=== PATIENT | female | born 1955 | race Hispanic/Latino ===

== ENCOUNTER 2016-12-18 09:46 | Outpatient (CLI) | payer OTHER ==
--- NOTE | 2016-12-18 11:44 | XRay Report ---
Bilateral knees, 2 views History: Injury, pain. Findings: Bone mineralization is borderline. No acute osseous findings or joint pathology is identified. The soft tissues are unremarkable. Minor vascular calcifications are noted in the posterior soft tissues bilaterally. Impression: Unremarkable bilateral knees. Borderline osteopenia.
== END 2016-12-18 09:47 | disposition home or self-care (01) ==
LOC: XRAY 09:46
PROVIDERS: ATTEND Internal Medicine
DX: S89.91XA Unspecified injury of right lower leg, initial encounter (principal); S89.92XA Unspecified injury of left lower leg, initial encounter; M25.862 Other specified joint disorders, left knee; M25.861 Other specified joint disorders, right knee; I11.0 Hypertensive heart disease with heart failure; I50.9 Heart failure, unspecified; E78.00 Pure hypercholesterolemia, unspecified; E11.9 Type 2 diabetes mellitus without complications; G62.9 Polyneuropathy, unspecified; F32.9 Major depressive disorder, single episode, unspecified; F41.9 Anxiety disorder, unspecified; Z95.5 Presence of coronary angioplasty implant and graft; X58.XXXA Exposure to other specified factors, initial encounter; Y93.89 Activity, other specified; Y92.89 Other specified places as the place of occurrence of the external cause; Y99.8 Other external cause status

== ENCOUNTER 2020-11-17 08:51 | Observation (INO) | payer MEDICARE, OTHER ==
[2020-11-17] MEDS ORDERED: ASPIRIN EC 325 MG TAB PO ONE (09:18)
[2020-11-17 09:47] LABS: Basophils % (Auto) 0.5 % (0.0-1.8); Eosinophils # (Auto) 0.1 K/mm3 (0.0-0.4); Hematocrit 35.4 % (30.3-42.9); Hemoglobin 11.8 gm/dl (10.1-14.3); Lymphocytes # (Auto) 1.5 K/mm3 (1.2-5.4); Lymphocytes % (Auto) 26.2 % (13.4-35.0); Mean Corpuscular HGB Conc 33 % (30-34); Mean Corpuscular Volume 91 fl (79-97); Monocytes # (Auto) 0.6 K/mm3 (0.0-0.8); Monocytes % (Auto) 11.3 % (0.0-7.3); Platelet Count 152 K/mm3 (140-440); Red Cell Distribution Width 13.6 % (13.2-15.2)
[2020-11-17] MEDS ORDERED: SODIUM CHLORIDE 0.9% 500 ML 500 ML IV SCH (10:00)
[2020-11-17 10:03] LABS: BUN/Creatinine Ratio 24; Blood Urea Nitrogen 22 mg/dL (7-17); Calcium 9.3 mg/dL (8.4-10.2); Hemolysis Index 3
[2020-11-17] MEDS ORDERED: HEPARIN/NS 5000 UNIT/500ML 1,000 ML IR ONE (10:50)
[2020-11-17 11:01] LABS: INR 0.9 (0.87-1.13)
[2020-11-17] MEDS: fentaNYL 100 MCG/2 ML INJ ONE ×3 (11:14→11:49)
[2020-11-17] MEDS: MIDAZOLAM 2 MG/2 ML INJ ONE ×3 (11:15→11:49)
[2020-11-17] MEDS: LIDOCAINE (2%) 20 MG/1 ML VIAL 20 ML MDV INFILTRATI ONE ×2 (11:16→11:35)
[2020-11-17] MEDS: HEPARIN 10,000 UNITS/10 ML VIAL ONE ×5 (11:16→12:13)
[2020-11-17] MEDS: VERAPAMIL 5 MG/2 ML INJ ONE ×2 (11:17→11:36)
[2020-11-17] MEDS: NITROGLYCERIN SYRINGE 6 ML ONE ×2 (11:17→11:36)
[2020-11-17] MEDS ORDERED: ALUM-MAG HYDROXIDE-SIMETHICONE 200-200-20MG/5ML ORAL LIQD 30 ML ONE (12:10)
[2020-11-17] MEDS ORDERED: CLOPIDOGREL 300 MG TAB ONE (12:10)
[2020-11-17] MEDS ORDERED: ZOLPIDEM 5 MG TAB PO PRN (12:29)
[2020-11-17] MEDS ORDERED: traMADol 50 MG TAB PO PRN ×2 (12:29→12:55)
[2020-11-17] MEDS ORDERED: ONDANSETRON 4 MG/2 ML INJ IV PRN (12:29)
[2020-11-17] MEDS ORDERED: SODIUM CHLORIDE 0.9% 1000 ML 1,000 ML IV SCH (12:30)
[2020-11-17] MEDS ORDERED: ACETAMINOPHEN 325 MG TAB PO PRN ×2 (12:55→13:00)
[2020-11-17] MEDS ORDERED: HYDROcodone/ACETAMINOPHEN 5-325 MG TAB PO PRN (12:55)
--- NOTE | 2020-11-17 14:32 | Cardiac Catherization Report ---
DATE OF SERVICE: 11/17/2020 CARDIAC CATHETERIZATION AND CORONARY ANGIOPLASTY REPORT REASON FOR PROCEDURE: Chest pain, unstable angina and abnormal thallium stress test in a patient with previous coronary stent in the proximal LAD. PROCEDURES: 1. Left heart catheterization. 2. Selective left and right coronary angiography. 3. Left ventricular angiography. 4. Coronary angioplasty and stenting of the proximal LAD. DESCRIPTION OF PROCEDURE: The patient was prepped and draped in a sterile fashion after informed consent. The right radial cath site was prepped and draped after negative Michael's test. The right radial artery was entered using the Seldinger technique followed by placement of a 6-Swazi hydrophilic sheath. Routine radial cocktail was administered via the sheath. We performed selective left and right coronary angiography using a #3.5 left Corinna and a #4 right Corinna. The right Corinna was used for left ventricular angiography. The angiograms were reviewed. CORONARY ANGIOGRAPHY: Left ventricular end diastolic pressure was 15, ascending aortic pressure 152/66. There was no significant pressure gradient on pullback across the aortic valve. Coronary angiography showed the left main coronary artery to be free of significant disease. The left anterior descending artery contained a stent in its proximal to mid segment. The distal half of the stented segment was severely restenosed with a greater than 99% occlusion within the restenosed segment. This resulted in MYA grade 1 to 2 flow down a large LAD system. The circumflex artery was the large dominant system that contained mild irregularities with no significant disease. The right coronary artery was small, nondominant and free of significant disease. CORONARY ANGIOPLASTY: We commenced with ad-hoc coronary intervention to the LAD restenosis. We selected a #3.0 XB guiding catheter and advanced to the left coronary ostium. A 0.014 inch Barking Machine Feeder 50 guidewire was directed across the lesional segment in the LAD. Following wire placement, we performed predilatation balloon angioplasty using a 3.0 mm balloon catheter. We then deployed a 3.0 x 22 mm Resolute drug-eluting stent across the lesional segment, covering the previous stented segment and inflated the new stent to optimal pressures. Following stenting, there was an excellent angiographic result, zero residual stenosis and MYA 3 flow was restored down the LAD. The patient tolerated the procedure well and there were no complications. The catheters and the wires were removed, sheath removed and hemostasis using a TR band. She was returned to the postprocedure unit in stable condition. CONCLUSION: 1. Coronary artery disease with critical in-stent restenosis of the proximal LAD stent. 2. Otherwise, no significant de lanie disease in a circumflex dominant system. 3. Overall, mild left ventricular systolic dysfunction, ejection fraction 45-50% with evidence on LV angiography of hypo to akinesis of the distal anterior wall and apex. 4. Successful ad-hoc angioplasty and stenting of the LAD following balloon angioplasty and deployment of a 3.0 mm drug-eluting stent, excellent angiographic result with zero residual stenosis and buddhist of MYA 3 flow. The patient will be admitted for 23 hours post-intervention observation and placed on guideline directed medical therapy including dual oral antiplatelet therapy with Plavix and aspirin. TID: [id number] RECEIPT: [id number] PONCE cc: Smith Altamirano
[2020-11-17] MEDS: METOPROLOL TARTRATE 50 MG TAB PO SCH ×2 (14:34→21:56)
[2020-11-17] MEDS: INSULIN REGULAR, HUMAN 100 UNITS/1 ML SUB-Q SCH ×2 (15:37→21:56)
[2020-11-17] MEDS: clonazePAM 0.5 MG TAB PO SCH (21:51)
[2020-11-17] MEDS ORDERED: traZODone 100 MG TAB PO SCH (22:00)
[2020-11-17] MEDS ORDERED: NON-FORMULARY EACH (Trazodone Hcl [Trazodone Hcl] 150 MG Tablet) PO SCH (22:00)
[2020-11-17] MEDS ORDERED: DIVALPROEX ER 500 MG TAB PO SCH (22:00)
[2020-11-17] MEDS ORDERED: CLONAZEPAM 1 MG PO SCH (22:00)
[2020-11-18 05:38] LABS: Basophils % (Auto) 0.5 % (0.0-1.8); Eosinophils # (Auto) 0.1 K/mm3 (0.0-0.4); Eosinophils % (Auto) 1.5 % (0.0-4.3); Hematocrit 33.5 % (30.3-42.9); Hemoglobin 11.4 gm/dl (10.1-14.3); Lymphocytes # (Auto) 1.8 K/mm3 (1.2-5.4); Lymphocytes % (Auto) 27.5 % (13.4-35.0); Mean Corpuscular HGB Conc 34 % (30-34); Mean Corpuscular Volume 91 fl (79-97); Monocytes # (Auto) 0.7 K/mm3 (0.0-0.8); Monocytes % (Auto) 11.4 % (0.0-7.3); Platelet Count 146 K/mm3 (140-440); Red Blood Count 3.68 M/mm3 (3.65-5.03); Red Cell Distribution Width 13.4 % (13.2-15.2)
[2020-11-18 05:43] LABS: Blood Urea Nitrogen 19 mg/dL (7-17); Calcium 8.6 mg/dL (8.4-10.2); Hemolysis Index 1
[2020-11-18 05:45] LABS: BUN/Creatinine Ratio 27
[2020-11-18 08:33] VITALS: BP 139/54
--- NOTE | 2020-11-18 09:02 | XRay Report ---
CHEST 1 VIEW 11/18/2020 8:47 AM INDICATION / CLINICAL INFORMATION: Post-PCI. COMPARISON: 02/08/18. FINDINGS: SUPPORT DEVICES: None. HEART / MEDIASTINUM: The heart size and pulmonary vasculature are normal. LUNGS / PLEURA: There is a 1 cm nodular opacity overlying the right lateral costophrenic angle, new s maximo the prior study. A tiny calcified granuloma in the left mid-upper lung laterally is stable. The lungs are otherwise clear. There is no evidence of pleural effusion. No pneumothorax. ADDITIONAL FINDINGS: No significant additional findings. IMPRESSION: Nodular opacity overlying the right lateral costophrenic angle. PA and lateral views with nipple markers are recommended for further characterization. Signer Name: Boone Flaherty MD Signed: 11/18/2020 8:57 AM Workstation Name: [id number]
[2020-11-18] MEDS ORDERED: CLOPIDOGREL 75 MG TAB PO SCH (10:00)
[2020-11-18] MEDS ORDERED: LISINOPRIL 10 MG TAB PO SCH (10:00)
[2020-11-18] MEDS ORDERED: ASPIRIN EC 325 MG TAB PO SCH (10:00)
[2020-11-18] MEDS ORDERED: ASPIRIN EC 81 MG TAB PO SCH (10:00)
[2020-11-18] MEDS: clonazePAM 0.5 MG TAB PO SCH (10:33)
[2020-11-18] MEDS: METOPROLOL TARTRATE 50 MG TAB PO SCH (10:34)
[2020-11-18] MEDS: INSULIN REGULAR, HUMAN 100 UNITS/1 ML SUB-Q SCH ×2 (10:38→13:34)
--- NOTE | 2020-11-18 11:23 | Short Stay Summary ---
<MONIQUE SALEH - Last Filed: 11/18/20 11:26> Short Stay Documentation Date of service: 11/18/20 - History H&P: obtained from office - Allergies and Medications Current Medications: Allergies tetracycline Adverse Reaction (Verified 11/17/20 09:13) Unknown Home Medications Medication Instructions Recorded Confirmed Last Taken Type Lisinopril [Zestril] 10 mg PO DAILY 02/08/18 11/17/20 11/16/20 History 10 mg clonazePAM [Clonazepam] 1 mg PO BID 02/08/18 11/17/20 11/16/20 History 1 mg AtorvaSTATin [Lipitor] 40 mg PO 11/17/20 11/17/20 11/16/20 History 40 mg Divalproex ER [Depakote ER] 500 mg PO 11/17/20 11/17/20 11/16/20 History 500 mg Insulin Glargine,Hum.rec.anlog 22 units SQ QAM 11/17/20 11/17/20 11/16/20 History [Lantus Solostar] 22 units Insulin NPH/Regular [NovoLIN 70/30] 8 unit SUB-Q TID 11/17/20 11/17/20 11/16/20 History 8 units Trazodone HCl 150 mg PO 11/17/20 11/17/20 11/16/20 History 150 mg Active Medications Acetaminophen (Acetaminophen 325 Mg Tab) 650 mg PO Q4H PRN PRN Reason: Pain MILD(1-3)/Fever >100.5/[place] Aspirin (Aspirin Ec 81 Mg Tab) 81 mg PO QDAY [facility] Last Admin: 11/18/20 10:33 Dose: 81 mg Documented by: Atorvastatin Calcium (Atorvastatin 40 Mg Tab) 40 mg PO [facility] Last Admin: 11/17/20 21:56 Dose: 40 mg Documented by: Clonazepam (Clonazepam 0.5 Mg Tab) 1 mg PO BID [facility] Last Admin: 11/18/20 10:33 Dose: 1 mg Documented by: Clopidogrel Bisulfate (Clopidogrel 75 Mg Tab) 75 mg PO QDAY [facility] Last Admin: 11/18/20 10:34 Dose: 75 mg Documented by: Divalproex Sodium (Divalproex Er 500 Mg Tab) 500 mg PO [facility] Last Admin: 11/17/20 22:25 Dose: 500 mg Documented by: Insulin Human Regular (Insulin Regular, Human 100 Units/1 Ml) 0 units SUB-Q ACHS [facility]; Protocol Last Admin: 11/18/20 10:38 Dose: 4 units Documented by: Isosorbide Mononitrate (Isosorbide Mononitrate Er 30 Mg Tab) 30 mg PO QDAY [facility] Last Admin: 11/18/20 10:33 Dose: 30 mg Documented by: Lisinopril (Lisinopril 10 Mg Tab) 10 mg PO DAILY [facility] Last Admin: 11/18/20 10:34 Dose: 10 mg Documented by: Metoprolol Tartrate (Metoprolol Tartrate 50 Mg Tab) 50 mg PO BID [facility] Last Admin: 11/18/20 10:34 Dose: 50 mg Documented by: Ondansetron HCl (Ondansetron 4 Mg/2 Ml Inj) 4 mg IV Q8H PRN PRN Reason: N/V unrelieved by Reglan Tramadol HCl (Tramadol 50 Mg Tab) 50 mg PO Q4H PRN PRN Reason: Pain, Mild (1-3) Trazodone HCl (Trazodone 100 Mg Tab) 150 mg PO HS [facility] Last Admin: 11/17/20 21:51 Dose: 150 mg Documented by: Zolpidem Tartrate (Zolpidem 5 Mg Tab) 5 mg PO QHS PRN PRN Reason: Sleep - Physical exam General appearance: no acute distress HEENT: PERRLA Lungs: Clear to auscultation Heart: Regular rate, Normal S1, Normal S2 - Brief post op/procedure progress note Condition: stable - Hospital course Hospital course: Labs today shows a potassium at 5.1. - Disposition Condition at discharge: Stable Disposition: 01 HOME / SELF CARE / HOMELESS Short Stay Discharge Plan Follow up with: Smith SAEZ MD [Primary Care Provider] - 7 Days AUGUSTO LENTZ MD [Staff Physician] - 7 Days Prescriptions: Aspirin EC [Halfprin EC] 81 mg PO QDAY #30 tablet ISOSORBIDE MONOnitrate [Imdur ER] 30 mg PO QDAY #30 tablet Metoprolol [Lopressor TAB] 50 mg PO BID #60 tablet Clopidogrel [Plavix] 75 mg PO QDAY #30 tablet <AUGUSTO LENTZ - Last Filed: 11/18/20 12:59> Short Stay Documentation - History H&P: obtained from office Past Medical History: CAD - Allergies and Medications Current Medications: Allergies tetracycline Adverse Reaction (Verified 11/17/20 09:13) Unknown Home Medications Medication Instructions Recorded Confirmed Last Taken Type Lisinopril [Zestril] 10 mg PO DAILY 02/08/18 11/17/20 11/16/20 History 10 mg clonazePAM [Clonazepam] 1 mg PO BID 02/08/18 11/17/20 11/16/20 History 1 mg AtorvaSTATin [Lipitor] 40 mg PO HS 11/17/20 11/17/20 11/16/20 History 40 mg Divalproex ER [Depakote ER] 500 mg PO HS 11/17/20 11/17/20 11/16/20 History 500 mg Insulin Glargine,Hum.rec.anlog 22 units SQ QAM 11/17/20 11/17/20 11/16/20 History [Lantus Solostar] 22 units Insulin NPH/Regular [NovoLIN 70/30] 8 unit SUB-Q TID 11/17/20 11/17/20 11/16/20 History 8 units Trazodone HCl 150 mg PO HS 11/17/20 11/17/20 11/16/20 History 150 mg Aspirin EC [Halfprin EC] 81 mg PO QDAY #30 tablet 11/18/20 Unknown Rx Clopidogrel [Plavix] 75 mg PO QDAY #30 tablet 11/18/20 Unknown Rx ISOSORBIDE MONOnitrate [Imdur ER] 30 mg PO QDAY #30 tablet 11/18/20 Unknown Rx Metoprolol [Lopressor TAB] 50 mg PO BID #60 tablet 11/18/20 Unknown Rx Active Medications Acetaminophen (Acetaminophen 325 Mg Tab) 650 mg PO Q4H PRN PRN Reason: Pain MILD(1-3)/Fever >100.5/[place] Aspirin (Aspirin Ec 81 Mg Tab) 81 mg PO QDAY [facility] Last Admin: 11/18/20 10:33 Dose: 81 mg Documented by: Atorvastatin Calcium (Atorvastatin 40 Mg Tab) 40 mg PO [facility] Last Admin: 11/17/20 21:56 Dose: 40 mg Documented by: Clonazepam (Clonazepam 0.5 Mg Tab) 1 mg PO BID [facility] Last Admin: 11/18/20 10:33 Dose: 1 mg Documented by: Clopidogrel Bisulfate (Clopidogrel 75 Mg Tab) 75 mg PO QDAY [facility] Last Admin: 11/18/20 10:34 Dose: 75 mg Documented by: Divalproex Sodium (Divalproex Er 500 Mg Tab) 500 mg PO [facility] Last Admin: 11/17/20 22:25 Dose: 500 mg Documented by: Insulin Human Regular (Insulin Regular, Human 100 Units/1 Ml) 0 units SUB-Q ACHS [facility]; Protocol Last Admin: 11/18/20 10:38 Dose: 4 units Documented by: Isosorbide Mononitrate (Isosorbide Mononitrate Er 30 Mg Tab) 30 mg PO QDAY [facility] Last Admin: 11/18/20 10:33 Dose: 30 mg Documented by: Lisinopril (Lisinopril 10 Mg Tab) 10 mg PO DAILY [facility] Last Admin: 11/18/20 10:34 Dose: 10 mg Documented by: Metoprolol Tartrate (Metoprolol Tartrate 50 Mg Tab) 50 mg PO BID [facility] Last Admin: 11/18/20 10:34 Dose: 50 mg Documented by: Ondansetron HCl (Ondansetron 4 Mg/2 Ml Inj) 4 mg IV Q8H PRN PRN Reason: N/V unrelieved by Reglan Tramadol HCl (Tramadol 50 Mg Tab) 50 mg PO Q4H PRN PRN Reason: Pain, Mild (1-3) Trazodone HCl (Trazodone 100 Mg Tab) 150 mg PO [facility] Last Admin: 11/17/20 21:51 Dose: 150 mg Documented by: Zolpidem Tartrate (Zolpidem 5 Mg Tab) 5 mg PO QHS PRN PRN Reason: Sleep - Physical exam General appearance: no acute distress HEENT: PERRLA Lungs: Clear to auscultation Heart: Regular rate, Normal S1, Normal S2 Gastrointestinal: normoactive bowel sounds Female Genitourinary: deferred Rectal Exam: deferred Extremities: pulses intact Neurological: Normal gait, Normal speech - Brief post op/procedure progress note Date of procedure: 11/17/20 Pre-op diagnosis: Coronary artery disease Post-op diagnosis: same Anesthesia: MAC Findings: See cath report. Condition: stable - Hospital course Hospital course: Patient presented for an outpatient cardiac catheterization, indication was chest pain and abnormal thallium. On cardiac catheterization, we found a greater than 99% in-stent restenosis of a proximal LAD stent which was implanted over 10 years ago. She underwent successful angioplasty and additional implantation of a long 3.0 mm drug-eluting stent, covering the entire lesional segment of restenosis. Following stenting there was an excellent angiographic result and MYA-3 flow was restored. On discharge, the patient is asymptomatic, looks and feels well, hemodynamically stable in sinus rhythm. There is some ecchymosis around the right radial cath site, but no hematoma, normal radial pulses and the hand is warm with normal motor function. The laboratory exam shows a borderline potassium of 5.1, which has been recommended for a repeat pending which the patient will be discharged home. On discharge she will be continued on guideline directed medical therapy for coronary artery disease including dual oral antiplatelet therapy with Plavix. - Discharge Diagnoses (1) Coronary artery disease Status: Acute (2) Coronary angioplasty status Status: Acute Short Stay Discharge Plan Activity: advance as tolerated Weight Bearing Status: Full Weight Bearing Diet: low fat, low cholesterol, low salt, diabetic Wound: keep clean and dry Special Instructions: smoking cessation, no heavy lifting (3 days)
--- NOTE | 2020-11-18 13:30 | Electrocardiograph Report ---
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
--- NOTE | 2020-11-18 13:32 | Electrocardiograph Report ---
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
--- NOTE | 2020-11-18 13:37 | Electrocardiograph Report ---
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
== END 2020-11-18 16:09 | disposition home or self-care (01) ==
LOC: CATHLABREC 08:51 → 4A 12:55 → INTOOBSV 12:55 → 4A 14:42
PROVIDERS: ADMIT Internal Medicine Cardiovascular Disease; ATTEND Internal Medicine Cardiovascular Disease
DX: I25.119 Atherosclerotic heart disease of native coronary artery with unspecified angina pectoris (principal); E11.9 Type 2 diabetes mellitus without complications; Z79.4 Long term (current) use of insulin; Z95.1 Presence of aortocoronary bypass graft; Z79.82 Long term (current) use of aspirin
CPT/HCPCS: 36415; 71045; 80048; 82962; 84132; 84484; 85025; 85610; 85730; 93005; 93458; A9270; C1725; C1769; C1874; C1887; C1894; C9600; G0378; J1644; J2250; J3010; J7040; 92928; J1815; Q9967